=== PATIENT | male | born 1970 | race Caucasian/White ===

== ENCOUNTER 2019-06-12 10:50 | Emergency (ER) | payer OTHER, MEDICAID ==
[~2019-06-12] VITALS: Ht 172.7 cm; Wt 61.2 kg
[2019-06-12 10:58] VITALS: BP_SYST 145
== END 2019-06-12 12:12 ==
LOC: SED 10:50
DX: Z02.89 Encounter for other administrative examinations (principal); R03.0 Elevated blood-pressure reading, without diagnosis of hypertension
CPT/HCPCS: 73090; 99283